=== PATIENT | female | born 2000 | race Two or more races ===

== ENCOUNTER 2020-09-28 04:43 | Emergency (ER) | payer OTHER, SELFPAY ==
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
--- NOTE | 2020-09-28 04:53 | PC.NURSE ---
PT PLACED IN RM 2, PD IN ROOM WITH THE PATIENT. CALL FOR HELP NOTIFIED, THEY WILL SEND A NAILER HAND.
[2020-09-28 04:55] VITALS: BP 120/83; PULSE 59; RESP 18; TEMP 36.4; O2SAT 100
--- NOTE | 2020-09-28 07:08 | PC.NURSE ---
Jennifer, call for help was here upon my arrival; leaving at this time, states pt. asked her to leave; per Jennifer she has all the information I need and the pt. has received all the appropriate information from her.
[2020-09-28 07:18] VITALS: BP 128/70; PULSE 60; RESP 14; TEMP 37.1; O2SAT 100
[2020-09-28 09:20] VITALS: BP 100/43; PULSE 64; RESP 14; O2SAT 98
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
== END 2020-09-28 09:20 | disposition home or self-care (01) ==
PROVIDERS: Emergency Provider Emergency Medicine
DX: T74.21XA Adult sexual abuse, confirmed, initial encounter (principal); F17.210 Nicotine dependence, cigarettes, uncomplicated
CPT/HCPCS: 99285

== ENCOUNTER 2024-07-30 12:52 | Inpatient (IN) | payer MEDICAID, SELFPAY ==
[2024-07-30] VITALS (40 sets, daily range): BP systolic 94–182; BP diastolic 62–127; PULSE 38–141; RESP 20–24; TEMP 36.1–36.8; O2SAT 77–100; BMI 45.7
--- NOTE | ~2024-07-30 | US_ITS ---
EXAMINATION: US OB follow up DATE: 07/30/2024 13:52 INDICATION: Limited care with posterior date . Estimated weight and presenta tion. TECHNIQUE: Real-time ultrasound of the pelvis was performed. The interpreting radiologist was not pre sent for the study. COMPARISON: None. FINDINGS: There is a single living fetus in breech presentation. The placenta is posterior. heart rate i s 136 beats per minute (bpm). Oligohydramnios with essentially no measurable amniotic fluid in all 4 quadrants yielding an amniotic fluid index of 0 cm. The following biometric data were obtained: BPD: 9.1 cm -> 37 weeks 0 days Head circumference: 35.4 cm -> 41 weeks 3 days Abdominal circumference: 36.2 cm -> 40 weeks 1 days Femur length: 6.8 cm -> 35 weeks 1 days The femur length to abdominal circumference ratio and femur length to head circumference ratio are demetri th below the normal range. Head circumference to abdominal circumference ratio: 0.98 (normal range 0.88-1.06). Estimated weight: 3605 g (+/-) 541 g or 7 lbs. 15 oz. (+/-) 1 lb. 3 oz. IMPRESSION: 1. Single living fetus in each presentation with heart rate of 136 bpm. 2. Oligohydramnios with no discernible amniotic fluid (amniotic fluid index 0 cm). Correlate for leak ing fluids. 3. Gestational age by ultrasound of 38 weeks 3 day(s) +/- 2 week(s) 5 day(s) with ultrasound estimate d date of delivery (JAYDE) of 08/10/2024. Estimated weight 3605g or 7 lbs. 15 oz. Please correlat e with clinical information or earlier ultrasounds for most accurate JAYDE. 4. Discordant biometric data with femur length to head circumference ratio and femur length to abdomi nal circumference ratio both below the normal range. Reviewed, dictated and finalized at location A. IMPRESSION: 1. Single living fetus in each presentation with heart rate of 136 bpm. 2. Oligohydramnios with no discernible amniotic fluid (amniotic fluid index 0 c m). Correlate for leaking fluids. 3. Gestational age by ultrasound of 38 weeks 3 day(s) +/- 2 week(s) 5 day(s) wi th ultrasound estimated date of delivery (JAYDE) of 08/10/2024. Estimated we ight 3605g or 7 lbs. 15 oz. Please correlate with clinical information or jeri ier ultrasounds for most accurate JAYDE. 4. Discordant biometric data with femur length to head circumference ratio and femur length to abdominal circumference ratio both below the normal range.
--- NOTE | 2024-07-30 14:22 | LDADM ---
This patient, Jamie Gordon, was admitted to Labor/Delivery/Recovery 104 on 07/30/24 at 12:52. Plans for labor, pain management and were discussed with patient. Patient/family oriented to hospital policies and general routines including ID bracelet, bed and alarms, visiting hours, pain management, procedures, bathroom and other care routines, personal items, smoking policy, room service/diet and guest tray routines, infant security routines, and visiting hours. Patient/Family are encouraged to report perceived risks to care and to ask questions if they do not understand what they are told or what they should do. See OBIX for further documentation.
--- NOTE | 2024-07-30 14:23 | WPDANESEPPF ---
Anes - Initial Pre Proc Eval Procedure: Primary C/s Date/Time: 07/30/24 14:23 Surgeon: Oliverio Cardenas MD Pre Op Diagnosis: Breech presentation Pre Op Diagnosis: Contractions Patient Data Age: 24 Gender: F Height: Weight: Allergies Allergy/AdvReac Type Severity Reaction Status Date / Time No Known Allergies Allergy Unverified 09/28/20 07:11 Home Medications Medication Instructions Recorded Confirmed Type ondansetron HCl 4 mg tablet 4 mg PO Q8H PRN Nausea 09/28/20 History (Zofran) pantoprazole 40 mg tablet,delayed PO 09/28/20 History release Laboratory Tests 07/30/24 14:05 WBC Pending RBC Pending Hgb Pending Hct Pending MCV Pending MCH Pending MCHC Pending RDW Pending Plt Count Pending MPV Pending Immature Gran % (Auto) Pending Neut % (Auto) Pending Lymph % (Auto) Pending [place] % (Auto) Pending Eos % (Auto) Pending Baso % (Auto) Pending Lymph # (Auto) Pending [place] # (Auto) Pending Eos # (Auto) Pending Baso # (Auto) Pending Abs Immat Gran (auto) Pending Absolute Neuts (auto) Pending Absolute Nucleated RBC Pending Nucleated RBC % Pending Sodium Pending Potassium Pending Chloride Pending Carbon Dioxide Pending Anion Gap Pending BUN Pending Creatinine Pending Estim Creat Clear Calc Pending Estimated GFR Pending Glucose Pending Calcium Pending Total Bilirubin Pending AST Pending ALT Pending Alkaline Phosphatase Pending Total Protein Pending Albumin Pending RPR Pending HIV 1&2 Ab/P24 Ag 4thGn Pending Rubella IgG Antibody Pending Patient hx anesthesia problems: none Family hx anesthesia problems: none Results Review: All pre-operative results and documents have been reviewed as part of the pre-operative evaluation. [facility] Past Medical History Medical History Anxiety Depression Social History Social History (Updated 09/28/20 @ 05:44 by Lydia Granados MD) Smoking status: Current every day smoker Tobacco type: cigarettes Alcohol intake: current Substance use: current Substance use type: marijuana Gender identity (if verbalized by the patient): Female Anes - Eval Final PreProcedure Day of Procedure 07/30/24 14:23 Patient weight: morbidly obese Heart: regular rate and rhythm Lungs: clear to auscultation and normal air movement Airway: Mallampati scale class II Neurological: alert and oriented Last oral intake: >/= 8 hours ASA classification: III Emergent: no Anesthetic plan: proceed Anesthesia type and monitoring: regional spinal and standard monitoring Results Review: All pre-operative results and documents have been reviewed as part of the pre-operative evaluation. Informed Consent: The patient's anesthetic plan and its attendant risks and benefits were discussed with the patient/family/POA. Questions were solicited and answers provided to the satisfaction of the patient/family/POA.
[2024-07-30 14:25] LABS: Basophils Percent Auto 0.2 % (0.2-1.2); Eosinophils Absolute Auto 0.1 K/mm3 (0-0.3); Eosinophils Percent Auto 0.5 % (0-4.4); Hematocrit 34.1 % (37.0-47.0); Immature Granulocyte Absolute 0.18 K/mm3 (0.00-0.031); Immature Granulocyte Percent A 1.9 % (0-0.5); Lymphocytes Absolute Auto 1.58 K/mm3 (0.9-3.2); Mean Corpuscular HGB Conc 32.3 g/dl (32-36); Mean Corpuscular Hemoglobin 29.1 pg (26-34); Mean Corpuscular Volume 90.2 fl (80-100); Mean Platelet Volume 11.8 fl (7.4-10.4); Monocytes Percent Auto 11.1 % (2.6-8.5); Neutrophils Absolute Auto 6.5 K/mm3 (1.3-6.7); Neutrophils Percent Auto 69.3 % (45.5-73.1); Platelet Count Result 316 k/mm3 (150-375); Red Blood Count 3.78 M/mm3 (4.2-5.4); Red Cell Distribution Width 15.2 % (11.5-14.5); White Blood Count 9.3 K/mm3 (4.5-10.0)
[2024-07-30] MEDS: FAMOTIDINE 20 MG/2 ML VIAL IV PUSH (14:30)
[2024-07-30] MEDS: LACTATED RINGERS 1,000 ML 125 ML IV CONT (14:30)
[2024-07-30] MEDS: AZITHROMYCIN 500 MG/NS 250 ML 500 MG/250 ML BAG 250 MG IVPB (14:30)
[2024-07-30 14:33] LABS: Alanine Aminotransferase 14 U/L (6-35); Albumin Level 3.5 g/dL (3.5-5.1); Alkaline Phosphatase 154 U/L (38-126); Anion Gap 9 mmol/L (4-12); Aspartate Amino Transferase 20 U/L (14-36); Bilirubin,Total 0.2 mg/dL (0.2-1.3); Blood Urea Nitrogen 15 mg/dL (7-17); Calcium 8.8 mg/dL (8.4-10.2); Carbon Dioxide 20 mmol/L (22-30); Chloride 107 mmol/L (98-107); Estimated Glomerular Filt Rate > 60; Glucose 98 mg/dL (65-110); Potassium 4.1 mmol/L (3.4-5.0); Sodium 136 mmol/L (137-145)
--- NOTE | 2024-07-30 14:40 | PM.IMHP ---
H&P: HPI History of Present Illness Date/Time: 07/30/24 14:40 Chief Complaint: Contractions Narrative: 24 y/o presented to L and D with c/o contractions. PNC significant for limited care. No records available. She states EDC 07/19/24. She states that when she has been seen, denied any concerns with . She does smoke nicotine and several marijuana blunts daily. Declines other drug or alcohol use. On L and she was was roger frequently and cervix was 2cm but did not feel cephalic. Cervix effaced. Ultrasound was ordered which confirmed breech presentation and no fluid. She had questionable leaking over a week and a half ago. Review of Systems Review of Systems: All systems reviewed & are unremarkable except as noted in HPI and below Constitutional: Constitutional: Reports no additional constitutional complaints and Denies headache(s) Eyes: Eyes: Denies spots in vision ENT: Reports system reviewed and no additional complaints, except as documented and Denies headache(s) Cardiovascular: Cardiovascular: Denies chest pain and Denies dyspnea Respiratory: Respiratory: Denies dyspnea Gastrointestinal: Gastrointestinal: Reports no additional gastrointestinal complaints Genitourinary: Genitourinary: Reports amenorrhea Musculoskeletal: Musculoskeletal: Reports no additional musculoskeletal complaints Integumentary/Breasts: Skin/Breast: Denies breast mass and Denies rash Neurologic: Denies headache(s) Psychiatric: Psychiatric: Reports no additional psychiatric complaints PMF Past Medical History Medical History Anxiety Depression Social History Social History Smoking status: Current every day smoker Tobacco type: cigarettes and e-cigarettes/vaping Second hand tobacco smoke exposure: Yes Alcohol intake: current Substance use: current Substance use type: marijuana Do You Feel Safe in your Home?: Yes Lack of Transportation: YES Lack of Food: Never True Current Housing: Decline to Answer Concerned About Future Housing: No Difficulty Paying Gas/Electric Bills: YES Difficulty Paying for Meds: YES Currently Unemployed: YES Education: Trade/Vocational Certificate Difficulty w/ Childcare or Family Care: YES Gender identity (if verbalized by the patient): Female Spiritual care concerns: No Meds Home Medications and Allergies Home Medications Medication Instructions Recorded Confirmed Type ondansetron HCl 4 mg tablet 4 mg PO Q8H PRN Nausea 09/28/20 History (Zofran) pantoprazole 40 mg tablet,delayed PO 09/28/20 History release Allergies Allergy/AdvReac Type Severity Reaction Status Date / Time No Known Allergies Allergy Unverified 09/28/20 07:11 Vital Signs Vital Signs - 24 hr 07/30/24 14:21 Oxygen Delivery Room Air Exam Const: General: no acute distress Eyes: General: appearance normal, both eyes and all related structures Resp: Effort & Inspection: normal respiratory effort Cardio: Rate: regular rate GI: Other: Gravid no fundal tenderness no right upper quadrant pain Skin: General skin exam: no rashes or lesions noted Neuro: Cognition (Neuro): normal cognition Extrem: General: normal to inspection Psych: Mental Status: mental status grossly normal H&P: Results Labs Labs: Short CBC 07/30/24 Range/Units 14:05 WBC 9.3 (4.5-10.0) K/mm3 Hgb 11.0 L (12.0-15.0) g/dL Hct 34.1 L (37.0-47.0) % Plt Count 316 (150-375) k/mm3 BMP 07/30/24 14:05 Sodium 136 L Potassium 4.1 Chloride 107 Carbon Dioxide 20 L BUN 15 Creatinine 0.70 Glucose 98 Calcium 8.8 Liver Function 07/30/24 Range/Units 14:05 Total Bilirubin 0.2 (0.2-1.3) mg/dL AST 20 (14-36) U/L ALT 14 (6-35) U/L Alkaline Phosphatase 154 H (38-126) U/L Albumin 3.5 (
[2024-07-30] MEDS: ceFAZolin 3 GM/D5W 100 ML 100 ML IVPB (14:51)
[2024-07-30 15:11] LABS: HIV 1/2 Ab P24 Ag Result Negative (Negative)
[2024-07-30 15:53] LABS: Rubella IgG Antibody 10.8 IU/ML
[2024-07-30 16:03] LABS: Rapid Plasma Reagin Non-Reactive (NonReactive)
[2024-07-30 16:10] LABS: Amphetamine Screen Urine Negative (Negative); Barbiturate Screen Urine Negative (Negative); Benzodiazepines Screen Urine Negative (Negative); Cannabinoid Screen Urine Positive (Negative); Cocaine Screen Urine Negative (Negative); Methadone Screen Urine Negative (Negative); Opiate Screen Urine Negative (Negative); Phencyclidine Screen Urine Negative (Negative)
--- NOTE | 2024-07-30 16:46 | W.PM.OBCSD ---
OB - Delivery Note Procedure Delivery date: 07/30/24 Pre-op diagnosis: Breech Presentation, No Care (limited) and Oligohydramnios Post-op Diagnosis: Same Prior to decision for section, ACOG/SMFM labor guidelines were considered and discussed with the patient and staff. Decision made to proceed with the section.: Yes Procedure Performed: Primary Surgeon: Oliverio Cardenas MD Anesthesia type: Epidural Description of Procedure/Findings: After informed consent, risks and benefits of the procedure was discussed with the patient. The patient was taken to the OR. The patient had epidural placed after unable to obtain spinal anesthesia. She was placed in the dorsal lithotomy position with leftward tilt. After the prior placed epidural anesthesia was found to be adequate, she was then prepped and draped in the usual sterile fashion. A Pfannenstiel skin incision was made with a scalpel and carried through to the underlying layer of fascia. The fascia was then nicked in the midline, extending bilaterally. The fascia was dissected off the rectus muscles bluntly and sharply, superiorly and inferiorly. The rectus muscles were in the midline, and peritoneum was identified and entered bluntly. The pelvic organs were visualized. Bladder was displaced inferiorly with bladder blade. The low transverse uterine incision was then made with the scalpel and extended with bilateral index fingers in a crescent-shaped fashion. No fluid obtained. The feet were presenting and grasped and the buttocks was delivered. The arms were then delivered. The head was delivered. The nose and mouth suctioned. The cord was clamped twice and cut. The was then handed off to the awaiting pediatric staff. The placenta was then delivered manually. There was noted to be an odor. The placental membranes were adherent to the uterine wall. The uterine cavity was sponge curretted. The uterus was then exteriorized. The uterine incision was then closed with 0 vicryl in a running locked fashion. A second layer of figure of eight of stitches of 0 vicryl were used. Hemostasis noted. The posterior cul de sac was irrigated. The uterus was then returned to the abdomen. Bilateral gutters were cleared off all clots and debris. The uterine incision was noted to be hemostatic. Interceed placed on uterine incision. The muscle bellies were inspected, hemostasis obtained with cautery. The subfascial layer was noted to be hemostatic, and the fascia was closed with 0 Vicryl in a running fashion. The subcutaneous layer was then irrigated. Hemostasis noted. The subcutaneous tissue was approximated with 3-0 Vicryl. The skin was closed with Ensorb francine. Skin dermabond applied at incision. All instruments, needle, and lap counts were correct x3. Metoplex dressing applied. The patient was taken to the recovery room in stable condition. Specimen: Yes (placenta and cord) Estimated Blood Loss: 310 Drains: No Packing: No Pathology: Yes (Placenta and cord) Complications: No immediate complications Condition: Stable Disposition: Floor Baby Date of : 07/30/24 Gestational Age by Date: 41 gender: Male presentation: breech (footling) Placenta delivery description: Manual Removal
[2024-07-30] MEDS: KETOROLAC 15 MG/ML VIAL (*BKC) IV PUSH ×2 (17:35→23:34)
[2024-07-30] MEDS: OXYTOCIN 30 UNITS/NS 500 ML 30 UNITS/500 ML BAG 125 UNITS IV CONT (17:45)
[2024-07-30] MEDS: CLINDAMYCIN 900 MG/D5W 50 ML 900 MG/50 ML PIGGYBACK 50 MG IVPB (18:25)
--- NOTE | 2024-07-30 19:25 | OBPPTRN ---
Patient transferred to post room #291 via stretcher @ 0104. Support person present. Oriented to unit, room, information board, rooming in, admission packet and security measures. Patient verbalizes understanding.
[2024-07-30] MEDS: ACETAMINOPHEN 325 MG TABLET 650 MG PO (23:34)
[2024-07-31 00:01] VITALS: BP 102/78; PULSE 70; RESP 18; TEMP 37.1; O2SAT 99
[2024-07-31] MEDS: ceFAZolin 2 GM/D5W 50 ML 2 GM/50 ML BAG IVPB (01:46)
[2024-07-31 05:09] LABS: Basophils Percent Auto 0.2 % (0.2-1.2); Eosinophils Percent Auto 0.1 % (0-4.4); Hematocrit 29.9 % (37.0-47.0); Immature Granulocyte Absolute 0.08 K/mm3 (0.00-0.031); Immature Granulocyte Percent A 0.6 % (0-0.5); Lymphocytes Absolute Auto 1.36 K/mm3 (0.9-3.2); Lymphocytes Percent Auto 9.6 % (18.3-44.2); Mean Corpuscular HGB Conc 33.4 g/dl (32-36); Mean Corpuscular Hemoglobin 29.9 pg (26-34); Mean Corpuscular Volume 89.3 fl (80-100); Mean Platelet Volume 11.6 fl (7.4-10.4); Monocytes Absolute Auto 0.9 K/mm3 (0.1-0.6); Monocytes Percent Auto 6.6 % (2.6-8.5); Neutrophils Absolute Auto 11.8 K/mm3 (1.3-6.7); Neutrophils Percent Auto 82.9 % (45.5-73.1); Platelet Count Result 286 k/mm3 (150-375); Red Blood Count 3.35 M/mm3 (4.2-5.4); White Blood Count 14.2 K/mm3 (4.5-10.0)
[2024-07-31] MEDS: KETOROLAC 15 MG/ML VIAL (*BKC) IV PUSH (05:45)
[2024-07-31] MEDS: ACETAMINOPHEN 325 MG TABLET 650 MG PO ×2 (05:45→17:32)
[2024-07-31 05:51] LABS: Hepatitis B Surface Antigen Negative (Negative)
[2024-07-31] MEDS: CLINDAMYCIN 900 MG/D5W 50 ML 900 MG/50 ML PIGGYBACK 50 MG IVPB (06:26)
[2024-07-31 06:40] VITALS: BP 128/67; PULSE 68; RESP 18; TEMP 36.3; O2SAT 98
--- NOTE | 2024-07-31 08:18 | PC.NURSE ---
Dr. Larson here to talk to patient about transferring baby to [facility] for care. Pt adamant that she wants to leave with baby. Discussed that she needs to take care of herself so she can take care of baby and she states that we can not hold her here and she will leave no matter what. Told her I would talk to Dr. Cardenas about her care, discussed possibly leaving on a pass but she states she will not let her baby go to another state, [facility]- in [place], while she stays here. Dr. Larson and I tried to assure her that baby will receive the best care over there and that we will care for her, but she is very upset stating she will leave no matter what we say. I came out of the room and Dr. Cardenas was at the nurses station, she was told about baby being transferred and that the patient wants to leave. She will go in shortly and talk to the patient about her options.
--- NOTE | 2024-07-31 08:39 | PM.OBPNVD ---
OB - PN: Subj Subjective Date/time seen: 07/31/24 08:39 Interval history: She is ambulating without problems, tolerating regular diet, positive flatus. Patient comments: pain well controlled [place] baby status: NICU OB - PN: Obj Data Labs 07/31/24 05:04 07/30/24 14:05 Labs: Laboratory Results - last 24 hr 07/30/24 07/31/24 14:05 05:04 WBC 9.3 14.2 H RBC 3.78 L 3.35 L Hgb 11.0 L 10.0 L Hct 34.1 L 29.9 L MCV 90.2 89.3 MCH 29.1 29.9 MCHC 32.3 33.4 RDW 15.2 H 15.0 H Plt Count 316 286 MPV 11.8 H 11.6 H Immature Gran % (Auto) 1.9 H 0.6 H Neut % (Auto) 69.3 82.9 H Lymph % (Auto) 17.0 L 9.6 L [place] % (Auto) 11.1 H 6.6 Eos % (Auto) 0.5 0.1 Baso % (Auto) 0.2 0.2 Lymph # (Auto) 1.58 1.36 [place] # (Auto) 1.0 H 0.9 H Eos # (Auto) 0.1 0.0 Baso # (Auto) 0.0 0.0 Abs Immat Gran (auto) 0.18 H 0.08 H Absolute Neuts (auto) 6.5 11.8 H Absolute Nucleated RBC 0.000 0.000 Nucleated RBC % 0.0 0.0 Sodium 136 L Potassium 4.1 Chloride 107 Carbon Dioxide 20 L Anion Gap 9 BUN 15 Creatinine 0.70 Estim Creat Clear Calc Not Reportable Estimated GFR > 60 Glucose 98 Calcium 8.8 Total Bilirubin 0.2 AST 20 ALT 14 Alkaline Phosphatase 154 H Total Protein 7.0 Albumin 3.5 Urine Opiates Screen Negative Urine Methadone Screen Negative Ur Barbiturates Screen Negative Ur Phencyclidine Scrn Negative Ur Amphetamine Screen Negative U Benzodiazepines Scrn Negative Urine Cocaine Screen Negative U Cannabinoids Screen Positive A RPR Non-reactive Hep Bs Antigen Negative HIV 1&2 Ab/P24 Ag 4thGn Negative Rubella IgG Antibody 10.8 Blood Type A Positive Antibody Screen Negative Imaging Radiologist's impression: Impressions Obstetrics Ultrasound 07/30/24 14:26 IMPRESSION: 1. Single living fetus in each presentation with heart rate of 136 bpm. 2. Oligohydramnios with no discernible amniotic fluid (amniotic fluid index 0 cm). Correlate for leaking fluids. 3. Gestational age by ultrasound of 38 weeks 3 day(s) +/- 2 week(s) 5 day(s) with ultrasound estimated date of delivery (JAYDE) of 08/10/2024. Estimated weight 3605g or 7 lbs. 15 oz. Please correlate with clinical information or earlier ultrasounds for most accurate JAYDE. 4. Discordant biometric data with femur length to head circumference ratio and femur length to abdominal circumference ratio both below the normal range. OB - PN A/P Plan Comments: POD1. She is doing well. Routine post care. Baby getting transferred. Will give 4-6 hour pass. She is on prophylactic antibiotic. Will start oral antibiotics. Time Spent With Patient Time: Total time spent is greater than 50% in coordination of care (as documented) at patient's floor/unit and/or counseling patient: Exam Const: General: comfortable and no acute distress Resp: Effort & Inspection: normal respiratory effort GI: Other: dressing clean intact, dry fundus nontender -4umb Neuro: General: oriented to person, oriented to place and oriented to time Extrem: General: no calf tenderness Other: 2+ edema LE bilat, nontender, no erythema Psych: Mental Status: mental status grossly normal
[2024-07-31] MEDS: SIMETHICONE 80 MG TAB.CHEW PO ×2 (08:51→17:31)
[2024-07-31] MEDS: POLYSACCHARIDE IRON COMPLEX 150 MG CAPSULE PO ×2 (08:51→17:31)
[2024-07-31] MEDS: MULTIVIT/MIN/PREN/FOL AC/IRON TABLET 1 TAB PO (08:51)
[2024-07-31] MEDS: DOCUSATE SODIUM 100 MG CAPSULE PO ×2 (08:51→17:31)
[2024-07-31] MEDS: CEPHALEXIN 500 MG CAPSULE PO ×2 (09:41→21:17)
--- NOTE | 2024-07-31 09:48 | PC.NURSE ---
0830- Dr. Cardenas talked to the patient, she has calmed down and agreed to leave on a 6 hour pass and then come back to the hospital for observation.
--- NOTE | 2024-07-31 10:22 | PC.NURSE ---
Pt left with her mother to go see baby at [facility]. Pt took all her belongings with her. She was told to come back in 6 hours which would be 1630, she states she will be back
--- NOTE | 2024-07-31 10:37 | WPDANLDNPN2 ---
Anes-Prog Note L&D-Neuraxial Date/Time: 07/31/24 10:37 Neuraxial medications: intrathecal PF morphine Opiod-related complaints: pruritis (moderate, no treatment) Patient feedback: Patient satisfied with post-operative pain management.
--- NOTE | 2024-07-31 10:38 | WPDANLDPN2 ---
Anes-Prog Note L&D Date/Time: 07/31/24 10:38 Comfortable throughout: section Neuraxial method: spinal Epidural/Spinal procedure site: clean & non-tender Neuro status: Neuro function grossly intact. Cardiovascular status: normal Respiratory status: normal Airway patency: baseline Mental status: baseline Post-Op hydration status: normal Vital Signs: Last Vital Signs Temp 97.4 F L 07/31/24 06:40 Pulse 68 07/31/24 06:40 Resp 18 07/31/24 06:40 BP 128/67 07/31/24 06:40 Pulse Ox 98 07/31/24 06:40 O2 Del Method Room Air 07/31/24 06:30 O2 Flow Rate 2 07/30/24 17:00 Pain score (VAS): 0 I/O: Intake & Output 07/30/24 07/31/24 07/31/24 23:59 07:59 15:59 Intake Total 1050 1000 Output Total 850 500 Balance 200 500 Post-procedural complaints: none and pruritis (moderate, no treatment) Patient feedback: Patient satisfied with anesthetic care.
--- NOTE | 2024-07-31 12:45 | PC.NURSE ---
Nurse practitioner from [facility] called to ask about lab results and asked if mom was still here or if she was going to be coming over soon. I told her that mom left around 1030am, I was suprised she wasn't at the hospital yet. She said that the mother had not shown up to the hospital yet.
--- NOTE | 2024-07-31 15:05 | PCCCNOTE ---
Addendum entered by MISSAEL Lopez 08/06/24 11:16: [phone]. Original Note: Recvd consult due to scoring high on OB substance abuse screen, and lack of care. Pt's UDS is THC+. Baby's umbilical cord drug screen is pending. Jamie admits to not having any care and reports was going to local ERs and Clinics for check ups during her . Nursing reports pt. was leaking fluid for 1.5 weeks before coming to the ER to deliver her baby. Nursing reports all the fluid had leaked out, and baby was transferred to [facility] due to respiratory distress. Concerned expressed to Sammie, [facility] Photographer Assistant, at [facility] [phone], who reports will notify Celia, [facility] Social Workers, , once they return to work on Friday 08/03 (after the holiday). Jamie espinoza will be living with her mom Cynthia at [address] in [place] [address]. Jamie reports lacking baby supplies and states Cynthia is behind on rent and will likely be evicted soon. Jamie reports the money she gets from the state, weekly, she spends it on THC and vape/cigarettes. Jamie espinoza does not have anything for baby to sleep in, such as bassinet etc. SDOH and resources provided to pt. DCFS report made online #[id number]. JANETT Ortiz and Sujatha aware of visit.
--- NOTE | 2024-07-31 16:47 | PC.NURSE ---
1142-Patient called [facility] stating she was on her way back from visiting baby at [facility]; pt stated she didn't get to [facility] right away when she left and she was waiting to talk to a doctor before leaving to head back to [facility].
[2024-07-31] MEDS: IBUPROFEN 600 MG TABLET PO (17:32)
[2024-07-31 21:19] VITALS: BP 123/80; PULSE 80; RESP 16; TEMP 36.6; O2SAT 99
[2024-08-01] MEDS: ACETAMINOPHEN 325 MG TABLET 650 MG PO (00:44)
[2024-08-01] MEDS: CLINDAMYCIN HCL 150 MG CAP 300 MG PO (00:44)
[2024-08-01] MEDS: IBUPROFEN 600 MG TABLET PO (00:44)
--- NOTE | 2024-08-01 06:54 | PM.OBDSVD ---
DS: Admitting Diagnosis Discharge Date 08/01/24 Admitting Diagnosis Oligohydramnios Breech presentation DS: Discharge Diagnosis Discharge Diagnosis (1) Breech presentation: Code(s): O32.1XX0 - Maternal care for breech presentation, not applicable or unspecified Status: Acute (2) Oligohydramnios: Code(s): O41.00X0 - Oligohydramnios, unspecified trimester, not applicable or unspecified Status: Acute OB - DS: Summary Hospital Course Hospital Course: She was admitted for delivery due to breech presentation and imaging showed no fluid. She was recommended for delivery by section. She had an uncomplicated section. On post op day 1 was transferred. Patient had threatened to leave AMA but agreed to pass. Prior to pass she had adequate pain control and was tolerating regular diet and flatus. She did return that evening. Had adequate pain control. She was informed later, on [employer], post op day 2, that infant was having surgery in am and she requested discharge. She stated she was feeling well. Reported bowel movement. She was discharged. Her prescriptions would be sent the following morning. OB Procedures : Ultrasound OB Procedures Intrapartum: OB Procedures: : Antibiotics (prophylactic) Peripartum Data Delivery Method: Section Procedures: Procedures Operation Date: 07/30/24 15:00 Actual Procedure Side Surgeon p Section Bilateral Oliverio Cardenas MD complications: none Status at Discharge Functional status at discharge: independent ambulation Time Spent with Patient Time attestation: Total time spent providing and/or coordinating discharge services: Exam Const: General: cooperative Orientation/consciousness: oriented to person, oriented to place and oriented to time HENMT: Face/Nose/Sinus: Normal external nose present Eyes: General: appearance normal, both eyes and all related structures Resp: Effort & Inspection: normal respiratory effort GI: Inspection: normal to inspection Other: dressing intact Skin: General skin exam: normal color Neuro: General: oriented to person, oriented to place and oriented to time Extrem: General: normal to inspection and no calf tenderness Psych: Appearance: grossly normal Mental Status: mental status grossly normal DS: Data Data Completed and Pending Pending studies at discharge: Pending at discharge 07/30/24 16:20 Surgical [PTH] Routine Labs on day of discharge: Preliminary micro results at discharge 07/30/24 19:10 Anaerobic Culture - Preliminary Placenta Discharge Plan Discharge Attending physician on discharge: Oliverio Cardenas Discharging Clinician: Oliverio Cardenas Patient Disposition: Home, Self-Care Activity: may shower, may drive after 2 weeks and pelvic rest Diet: regular Discharge Instructions: Education: Mom and Baby Guide Given to: Mother Follow-Up: Call your delivering provider's office for an appointment to be seen in: 1 Week BREAST CARE: * Wear a snug supportive bra. * For engorgement discomfort: Breast Feeding: * Apply warm moist washcloths * Express milk as needed to relieve engorgement * Wear loose clothing Bottle Feeding: * May apply ice packs * For sore nipples: * Identify correct latch-on * Apply warm moist washcloths before and after nursing * Air dry nipples after nursing * May apply Lansinoh cream to nipples ABDOMINAL INCISION: * Allow incision to air dry * Do NOT use lotions for powders on your incision * When showering, allow soap and water to run over the incision, but do not wash incision EPISIOTOMY/PERINEAL CARE: * Until bleeding stops, use your brandon bottle after urinating * Change your pad frequently throughout the day * You may take sitz baths several times a day (fill your bath
== END 2024-08-01 02:22 | disposition home or self-care (01) | DRG 540 ==
LOC: ANHLDR 17:06 → ANHOB2 19:26
PROVIDERS: Admitting Provider Obstetrics & Gynecology; Visit Provider Obstetrics & Gynecology
PROC: 10D00Z1 Extraction of Products of Conception, Low, Open Approach (ICD-10-PCS; CPT 59514; principal; 2024-07-30 15:00)
DX: O32.1XX0 Maternal care for breech presentation, not applicable or unspecified (principal); O41.03X0 Oligohydramnios, third trimester, not applicable or unspecified; Z37.0 Single live birth; Z3A.41 41 weeks gestation of pregnancy; O99.324 Drug use complicating childbirth; F12.90 Cannabis use, unspecified, uncomplicated; O99.334 Smoking (tobacco) complicating childbirth
CPT/HCPCS: 36415; 76816; 80053; 80307; 85025; 86592; 86703; 86762; 86850; 86900; 86901; 87070; 87075; 87205; 87340; 88307; A9270; G0432; J0690; J1200; J1885; J2001; J2250; J2274; J2590; J7120